=== PATIENT | male | born 1960 | race Caucasian/White ===

== ENCOUNTER 2024-12-24 11:15 | Inpatient (IN) | payer MEDICAID, OTHER ==
[~2024-12-24] VITALS: Ht 177.8 cm; Wt 92.8 kg
[~2024-12-24 11:15] MED LIST: ACET-3207 PO; ALBU2.5V39 NEB; AMLO-258 PO; CITA-144 PO; DSS100 PO; HEP5KI SQ; LISI-894 PO; LORA0.5T20 PO; MAGN-169 PO; PANT40TA54 PO; ZOLP-280 PO
[2024-12-24 11:39] LABS: BASOPHILS % (AUTO) 1.1 % (0.0-2.0); EOSINOPHILS % (AUTO) 1.1 % (1.0-6.0); HEMATOCRIT 47.2 % (41-53); HEMOGLOBIN 15.5 g/dL (13.5-17.5); LYMPHOCYTES # (AUTO) 1.2 K/uL (1.0-4.8); LYMPHOCYTES % (AUTO) 16.6 % (22.0-44.0); MEAN CORPUSCULAR HGB CONC 32.9 G/dL (31.0-37.0); MEAN CORPUSCULAR VOLUME 85 fL (80-100); MONOCYTES # (AUTO) 0.6 K/uL (0.1-1.0); MONOCYTES % (AUTO) 8.4 % (2.0-9.0); NEUTROPHILS # (AUTO) 5.3 K/uL (1.8-7.7); NEUTROPHILS % (AUTO) 72.8 % (40.0-70.0); PLATELET COUNT (AUTO) 245 K/uL (150-450); RED BLOOD CELL COUNT(AUTO) 5.55 MIL/uL (4.50-5.90); WHITE BLOOD COUNT (AUTO) 7.2 K/uL (4.5-11.0)
[2024-12-24] MEDS ORDERED: IOHEXOL 300 MG/ML 100 ML VIAL ONE (11:41)
[2024-12-24] MEDS ORDERED: SODIUM CHLORIDE 0.9% 100 ML ONE (11:41)
[2024-12-24] MEDS ORDERED: 0.9% SODIUM CHLORIDE 10 ML SYRINGE IVP ONE (11:41)
[2024-12-24 11:52] LABS: ANION GAP 9 mmol/L (8-16); CALCIUM, TOTAL 8.9 mg/dL (8.8-10.5); CARBON DIOXIDE 29 mmol/L (22-29); CHLORIDE 102 mmol/L (98-107); CREATININE 0.93 mg/dL (0.60-1.30); GLOMERULAR FILTR. RATE CALC > 60 mL/min (>60); GLUCOSE,RANDOM 109 mg/dL (70-110); HEMOGLOBIN A1C 6.1 % (3.8-5.6); POTASSIUM 3.7 mmol/L (3.5-5.1); SODIUM SERUM 140 mmol/L (136-145); UREA NITROGEN, BLOOD 14 mg/dL (7-18)
[2024-12-24 11:54] LABS: PROTHROMBIN TIME 10.5 SEC (9.4-11.6)
[2024-12-24 12:02] LABS: ALANINE AMINOTRANSFERASE 23 U/L (12-78); ALBUMIN 3.5 g/dL (3.4-5.0); ALKALINE PHOSPHATASE 117 U/L (46-116); ASPARTATE AMINOTRANSFERASE 17 U/L (15-37); BILIRUBIN,TOTAL 0.5 mg/dL (0.1-1.0); CHOL/HDL RATIO 3.2 (4.2-7.3); CHOLESTEROL 203 mg/dL (131-200); HDL CHOLESTEROL 64 mg/dL (40-60); LDL CHOL (CALC.) 127 mg/dL (0-130); TOTAL PROTEIN, SERUM 6.7 g/dL (6.4-8.2); TRIGLYCERIDES 62 mg/dL (15-150); TROPONIN I-HIGH SENSITIVITY 16 ng/L (<76)
[2024-12-24] MEDS ORDERED: AMLO-257 PO (12:13)
[2024-12-24] MEDS ORDERED: ASPI-1450 PO (12:13)
[2024-12-24 12:16] LABS: APPEARANCE,URINE CLEAR (CLEAR); BILIRUBIN,URINE NEGATIVE (NEGATIVE); COLOR,URINE LIGHT YELLOW (YELLOW); GLUCOSE, URINE (UA) NEGATIVE (NEGATIVE); KETONES,URINE NEGATIVE (NEGATIVE); LEUKOCYTE ESTERASE ,URINE NEGATIVE (NEGATIVE); NITRATE,URINE NEGATIVE (NEGATIVE); OCCULT BLOOD,URINE NEGATIVE (NEGATIVE); PROTEIN,URINE NEGATIVE (NEGATIVE); SPECIFIC GRAVITIY, URINE 1.028 (1.003-1.030); UROBILINOGEN,URINE <=1.0 mg/dL (<=1.0)
[2024-12-24] MEDS: lisinopriL 10 MG TABLET PO ONE (12:21)
[2024-12-24] MEDS: AmLODIPine BESYLATE 5 MG TABLET PO ONE (12:21)
[2024-12-24 12:22] LABS: ALCOHOL, URINE DRUG SCREEN NEGATIVE (NEGATIVE); AMPHET/METH SCREEN,URINE POSITIVE (NEGATIVE); BARBITURATE SCREEN, URINE NEGATIVE (NEGATIVE); BENZODIAZEPINES SCREEN,URINE NEGATIVE (NEGATIVE); CANNABINOID SCREEN,URINE NEGATIVE (NEGATIVE); COCAINE SCREEN,URINE NEGATIVE (NEGATIVE); METHADONE SCREEN, URINE NEGATIVE (NEGATIVE); OPIATE SCREEN,URINE NEGATIVE (NEGATIVE); PHENCYCLIDINE SCREEN,URINE NEGATIVE (NEGATIVE)
[2024-12-24 12:34] LABS: BACTERIA,URINE None Seen /HPF (None Seen); RBC,URINE None Seen /HPF (0-2); WBC,URINE None Seen /HPF (0-5)
[2024-12-24] MEDS: ASPIRIN 81 MG CHEWABLE TABLET PO ONE (13:27)
[2024-12-24] MEDS: LORazepam 1 MG TABLET PO ONE (13:27)
[2024-12-24 14:44] VITALS: BP 156/94; PULSE 64; RESP 18; TEMP 98.2; O2SAT 96
[2024-12-24] MEDS: HEPARIN SODIUM,PORCINE 5,000 UNITS/ML VIAL SQ SCH (16:00)
[2024-12-24 17:20] LABS: TROPONIN I-HIGH SENSITIVITY 16 ng/L (<76)
[2024-12-24 20:00] VITALS: BP 145/116; PULSE 82; RESP 19; TEMP 97.5; O2SAT 92
[2024-12-24] MEDS: ATORVASTATIN CALCIUM 40 MG TABLET PO SCH (20:20)
[2024-12-24] MEDS: DOCUSATE SODIUM 100 MG CAPSULE PO SCH (20:20)
[2024-12-24 23:34] VITALS: BP 147/90; PULSE 73; RESP 18; TEMP 97.5; O2SAT 95
[2024-12-24 23:48] LABS: TROPONIN I-HIGH SENSITIVITY 16 ng/L (<76)
[2024-12-25] VITALS: BP 147/90; PULSE 73; RESP 18; TEMP 97.5; O2SAT 95
[2024-12-25 04:02] VITALS: BP 159/94; PULSE 86; RESP 19; TEMP 97.7; O2SAT 96
[2024-12-25] MEDS: ACETAMINOPHEN 325 MG TABLET PO PRN (05:18)
[2024-12-25 08:37] VITALS: BP 150/95; PULSE 70; RESP 18; TEMP 97.7; O2SAT 94
[2024-12-25] MEDS: ASPIRIN 81 MG CHEWABLE TABLET PO SCH (09:00)
[2024-12-25] MEDS: CLOPIDOGREL BISULFATE 75 MG TABLET PO SCH (09:00)
[2024-12-25] MEDS: LORazepam 0.5 MG TABLET PO ONE (10:39)
[2024-12-25 13:25] VITALS: BP 163/95; PULSE 74; RESP 20; TEMP 97.9; O2SAT 97
[2024-12-25] MEDS: ACETAMINOPHEN 500 MG TABLET PO ONE (15:16)
[2024-12-25 16:00] VITALS: BP 166/111; PULSE 71; RESP 18; TEMP 97.9; O2SAT 97
[2024-12-25] MEDS: SERTRALINE HCL 50 MG TABLET PO SCH (16:52)
[2024-12-25] MEDS: lisinopriL 20 MG TABLET PO SCH (16:52)
[2024-12-25] MEDS: AmLODIPine BESYLATE 5 MG TABLET PO SCH (16:52)
[2024-12-25] MEDS: HydrALAZINE HCL 20 MG/ML VIAL IVP ONE (18:36)
[2024-12-25 20:00] VITALS: BP 170/137; PULSE 71; RESP 19; TEMP 98.8; O2SAT 97
[2024-12-25] MEDS: LORazepam 0.5 MG TABLET PO PRN (20:33)
[2024-12-25] MEDS: ISOSORBIDE MONONITRATE 30 MG ER TABLET PO SCH (22:36)
[2024-12-26] VITALS: BP 155/137; PULSE 64; RESP 19; TEMP 97.5; O2SAT 97
[2024-12-26] MEDS: ONDANSETRON HCL 4 MG/2 ML VIAL IVP PRN (02:46)
[2024-12-26 07:02] LABS: BASOPHILS % (AUTO) 0.3 % (0.0-2.0); EOSINOPHILS % (AUTO) 0.2 % (1.0-6.0); HEMATOCRIT 45.6 % (41-53); HEMOGLOBIN 15.3 g/dL (13.5-17.5); LYMPHOCYTES % (AUTO) 10.9 % (22.0-44.0); MEAN CORPUSCULAR HEMOGLOBIN 28.4 pg (26.0-34.0); MEAN CORPUSCULAR HGB CONC 33.7 G/dL (31.0-37.0); MEAN CORPUSCULAR VOLUME 85 fL (80-100); MONOCYTES # (AUTO) 0.4 K/uL (0.1-1.0); MONOCYTES % (AUTO) 4.2 % (2.0-9.0); NEUTROPHILS # (AUTO) 8.1 K/uL (1.8-7.7); NEUTROPHILS % (AUTO) 84.4 % (40.0-70.0); PLATELET COUNT (AUTO) 247 K/uL (150-450); RED CELL DISTRIBUTION WIDTH 14.4 % (11.5-14.5); WHITE BLOOD COUNT (AUTO) 9.6 K/uL (4.5-11.0)
[2024-12-26 07:11] LABS: ANION GAP 9 mmol/L (8-16); CALCIUM, TOTAL 8.6 mg/dL (8.8-10.5); CARBON DIOXIDE 27 mmol/L (22-29); CHLORIDE 103 mmol/L (98-107); CREATININE 0.85 mg/dL (0.60-1.30); GLOMERULAR FILTR. RATE CALC > 60 mL/min (>60); GLUCOSE,RANDOM 145 mg/dL (70-110); POTASSIUM 3.8 mmol/L (3.5-5.1); SODIUM SERUM 139 mmol/L (136-145); UREA NITROGEN, BLOOD 13 mg/dL (7-18)
[2024-12-26 08:41] VITALS: BP 150/101; PULSE 56; RESP 18; TEMP 97.5; O2SAT 98
[2024-12-26] MEDS ORDERED: AmLODIPine BESYLATE 5 MG TABLET PO SCH (09:00)
[2024-12-26] MEDS ORDERED: lisinopriL 20 MG TABLET PO SCH (09:00)
[2024-12-26 11:42] VITALS: BP 159/95; PULSE 63; RESP 19; TEMP 97.5; O2SAT 95
[2024-12-26 15:14] VITALS: BP 169/97; PULSE 58; RESP 19; TEMP 97.9; O2SAT 96
[2024-12-26] MEDS: HydrALAZINE HCL 10 MG TABLET PO ONE (15:28)
[2024-12-26] MEDS: AmLODIPine BESYLATE 5 MG TABLET PO SCH (20:39)
[2024-12-26 23:40] VITALS: BP 161/87; PULSE 53; RESP 19; TEMP 97.7; O2SAT 96
[2024-12-27 03:48] VITALS: PULSE 54; RESP 19; TEMP 97.9; O2SAT 98
[2024-12-27] MEDS: HydrALAZINE HCL 20 MG/ML VIAL IVP ONE (04:19)
[2024-12-27 06:30] VITALS: BP 160/83; PULSE 64; RESP 18; TEMP 97.9; O2SAT 97
[2024-12-27 08:00] VITALS: BP 176/101; PULSE 70; RESP 18; TEMP 97.7; O2SAT 97
[2024-12-27 11:37] VITALS: BP 164/89; PULSE 54; RESP 18; O2SAT 97
[2024-12-27] MEDS: METOCLOPRAMIDE HCL 5 MG TABLET PO PRN (12:31)
[2024-12-27] MEDS: lisinopriL 10 MG TABLET PO ONE (12:31)
[2024-12-27 16:28] VITALS: BP 161/93; PULSE 63; RESP 18; TEMP 97.9; O2SAT 98
[2024-12-27 21:25] VITALS: BP 161/101; PULSE 64; RESP 19; TEMP 97.9; O2SAT 97
[2024-12-28] VITALS (7 sets, daily range): BP systolic 149–184; BP diastolic 99–117; PULSE 65–78; RESP 18–20; TEMP 97.5–97.7; O2SAT 96–100
[2024-12-28] MEDS: lisinopriL 10 MG TABLET PO SCH (08:59)
[2024-12-28] MEDS: MORPHINE SULFATE 2 MG/ML SYRINGE IVP ONE (11:15)
[2024-12-28] MEDS: HydrALAZINE HCL 10 MG TABLET PO ONE (11:28)
[2024-12-28] MEDS: LACTULOSE 20 GM/30 ML SOLUTION UDCUP PO SCH (13:29)
[2024-12-28] MEDS ORDERED: ONDANSETRON 4 MG TABLET PO PRN (13:30)
[2024-12-28] MEDS: HydrALAZINE HCL 10 MG TABLET PO SCH (16:41)
[2024-12-29] VITALS (7 sets, daily range): BP systolic 121–166; BP diastolic 81–118; PULSE 66–79; RESP 18–20; TEMP 97.7–98.4; O2SAT 95–99
[2024-12-29] MEDS: NITROGLYCERIN 2% (1 GM=INCH) OINTMENT PACKET TP SCH (00:37)
[2024-12-29 07:13] LABS: BASOPHILS % (AUTO) 0.4 % (0.0-2.0); EOSINOPHILS % (AUTO) 0.6 % (1.0-6.0); HEMATOCRIT 46.8 % (41-53); LYMPHOCYTES % (AUTO) 9.4 % (22.0-44.0); MEAN CORPUSCULAR HEMOGLOBIN 28.4 pg (26.0-34.0); MEAN CORPUSCULAR HGB CONC 34.1 G/dL (31.0-37.0); MEAN CORPUSCULAR VOLUME 83 fL (80-100); MONOCYTES # (AUTO) 1.3 K/uL (0.1-1.0); MONOCYTES % (AUTO) 13.2 % (2.0-9.0); NEUTROPHILS # (AUTO) 7.8 K/uL (1.8-7.7); NEUTROPHILS % (AUTO) 76.4 % (40.0-70.0); PLATELET COUNT (AUTO) 265 K/uL (150-450); RED BLOOD CELL COUNT(AUTO) 5.63 MIL/uL (4.50-5.90); RED CELL DISTRIBUTION WIDTH 14.1 % (11.5-14.5); WHITE BLOOD COUNT (AUTO) 10.2 K/uL (4.5-11.0)
[2024-12-29 07:28] LABS: ANION GAP 10 mmol/L (8-16); CARBON DIOXIDE 27 mmol/L (22-29); CHLORIDE 91 mmol/L (98-107); CREATININE 0.71 mg/dL (0.60-1.30); GLOMERULAR FILTR. RATE CALC > 60 mL/min (>60); POTASSIUM 3.4 mmol/L (3.5-5.1); SODIUM SERUM 127 mmol/L (136-145)
[2024-12-29 07:42] LABS: CALCIUM, TOTAL 8.8 mg/dL (8.8-10.5); GLUCOSE,RANDOM 110 mg/dL (70-110); UREA NITROGEN, BLOOD 12 mg/dL (7-18)
[2024-12-29] MEDS: SODIUM CHLORIDE 0.9% 1,000 ML IV ONE (13:11)
[2024-12-30] VITALS (7 sets, daily range): BP systolic 100–124; BP diastolic 61–88; PULSE 70–78; RESP 18–20; TEMP 97.3–98.2; O2SAT 96–99
[2024-12-30 07:56] LABS: BASOPHILS % (AUTO) 0.8 % (0.0-2.0); EOSINOPHILS % (AUTO) 2.8 % (1.0-6.0); HEMATOCRIT 46.7 % (41-53); HEMOGLOBIN 15.9 g/dL (13.5-17.5); LYMPHOCYTES # (AUTO) 1.4 K/uL (1.0-4.8); LYMPHOCYTES % (AUTO) 15.8 % (22.0-44.0); MEAN CORPUSCULAR HEMOGLOBIN 28.4 pg (26.0-34.0); MEAN CORPUSCULAR VOLUME 84 fL (80-100); MONOCYTES # (AUTO) 1.4 K/uL (0.1-1.0); MONOCYTES % (AUTO) 15.9 % (2.0-9.0); NEUTROPHILS # (AUTO) 5.6 K/uL (1.8-7.7); NEUTROPHILS % (AUTO) 64.7 % (40.0-70.0); PLATELET COUNT (AUTO) 271 K/uL (150-450); RED BLOOD CELL COUNT(AUTO) 5.59 MIL/uL (4.50-5.90); RED CELL DISTRIBUTION WIDTH 14.4 % (11.5-14.5); WHITE BLOOD COUNT (AUTO) 8.6 K/uL (4.5-11.0)
[2024-12-30 08:12] LABS: ANION GAP 6 mmol/L (8-16); CALCIUM, TOTAL 8.3 mg/dL (8.8-10.5); CARBON DIOXIDE 27 mmol/L (22-29); CHLORIDE 94 mmol/L (98-107); CREATININE 0.86 mg/dL (0.60-1.30); GLOMERULAR FILTR. RATE CALC > 60 mL/min (>60); GLUCOSE,RANDOM 100 mg/dL (70-110); POTASSIUM 3.3 mmol/L (3.5-5.1); SODIUM SERUM 127 mmol/L (136-145); UREA NITROGEN, BLOOD 17 mg/dL (7-18)
[2024-12-30] MEDS ORDERED: POTASSIUM CHL 10 MEQ/WATER 50 ML IV PRN (14:45)
[2024-12-30] MEDS: SODIUM CHLORIDE 0.9% 1,000 ML IV ONE (16:00)
[2024-12-30] MEDS: POTASSIUM CHLORIDE 20 MEQ ER TABLET PO PRN (16:00)
[2024-12-30] MEDS: SODIUM CHLORIDE 1 GM TABLET PO SCH (20:12)
[2024-12-30] MEDS: MEGESTROL ACETATE 40 MG TABLET PO SCH (20:13)
[2024-12-31 05:03] VITALS: BP 106/77; PULSE 64; RESP 18; TEMP 98.1; O2SAT 95
[2024-12-31 07:20] VITALS: BP 102/67; PULSE 63; RESP 18; TEMP 98.1; O2SAT 98
[2024-12-31 07:39] LABS: BASOPHILS % (AUTO) 1.2 % (0.0-2.0); EOSINOPHILS % (AUTO) 5.3 % (1.0-6.0); HEMATOCRIT 46.3 % (41-53); HEMOGLOBIN 15.5 g/dL (13.5-17.5); LYMPHOCYTES # (AUTO) 1.6 K/uL (1.0-4.8); LYMPHOCYTES % (AUTO) 19.6 % (22.0-44.0); MEAN CORPUSCULAR HEMOGLOBIN 28.1 pg (26.0-34.0); MEAN CORPUSCULAR HGB CONC 33.4 G/dL (31.0-37.0); MEAN CORPUSCULAR VOLUME 84 fL (80-100); MONOCYTES # (AUTO) 1.5 K/uL (0.1-1.0); MONOCYTES % (AUTO) 18.5 % (2.0-9.0); NEUTROPHILS # (AUTO) 4.6 K/uL (1.8-7.7); NEUTROPHILS % (AUTO) 55.4 % (40.0-70.0); PLATELET COUNT (AUTO) 264 K/uL (150-450); RED BLOOD CELL COUNT(AUTO) 5.52 MIL/uL (4.50-5.90); RED CELL DISTRIBUTION WIDTH 14.2 % (11.5-14.5); WHITE BLOOD COUNT (AUTO) 8.3 K/uL (4.5-11.0)
[2024-12-31 07:59] LABS: ANION GAP 6 mmol/L (8-16); CALCIUM, TOTAL 8.2 mg/dL (8.8-10.5); CARBON DIOXIDE 28 mmol/L (22-29); CHLORIDE 101 mmol/L (98-107); CREATININE 0.81 mg/dL (0.60-1.30); GLOMERULAR FILTR. RATE CALC > 60 mL/min (>60); GLUCOSE,RANDOM 97 mg/dL (70-110); POTASSIUM 3.6 mmol/L (3.5-5.1); SODIUM SERUM 135 mmol/L (136-145); UREA NITROGEN, BLOOD 15 mg/dL (7-18)
[2024-12-31 14:58] VITALS: BP 129/82; PULSE 61; RESP 18; TEMP 98.6; O2SAT 96
[2024-12-31 19:44] VITALS: BP 132/72; PULSE 63; RESP 18; TEMP 98.9; O2SAT 95
[2024-12-31] MEDS: HydrALAZINE HCL 10 MG TABLET PO SCH (20:08)
[2025-01-01 05:06] VITALS: BP 134/87; PULSE 60; RESP 18; TEMP 97.5; O2SAT 95
[2025-01-01 07:25] VITALS: BP 120/86; PULSE 58; RESP 18; TEMP 98.2; O2SAT 94
[2025-01-01 11:59] VITALS: BP 141/83; PULSE 63; O2SAT 93
[2025-01-01 20:25] VITALS: BP 137/71; PULSE 62; RESP 20; TEMP 98.2; O2SAT 97
[2025-01-02 07:29] LABS: ANION GAP 9 mmol/L (8-16); CALCIUM, TOTAL 8.8 mg/dL (8.8-10.5); CARBON DIOXIDE 27 mmol/L (22-29); CHLORIDE 100 mmol/L (98-107); CREATININE 0.91 mg/dL (0.60-1.30); GLOMERULAR FILTR. RATE CALC > 60 mL/min (>60); GLUCOSE,RANDOM 114 mg/dL (70-110); SODIUM SERUM 136 mmol/L (136-145); UREA NITROGEN, BLOOD 10 mg/dL (7-18)
[2025-01-02 08:28] VITALS: BP 139/103; PULSE 62; RESP 19; TEMP 98.4; O2SAT 98
[2025-01-02] MEDS ORDERED: ATOR40TA28 PO (14:25)
[2025-01-02] MEDS ORDERED: CLOP75TA83 PO (14:27)
[2025-01-02] MEDS ORDERED: HYDR10TA31 PO (14:28)
[2025-01-02] MEDS ORDERED: ISOS30TA92 PO (14:29)
[2025-01-02] MEDS ORDERED: MEGE40TA33 PO (14:30)
[2025-01-02] MEDS ORDERED: SERT-158 PO (14:30)
[2025-01-02] MEDS ORDERED: LACT10SO85 PO (14:30)
[2025-01-02] MEDS ORDERED: SODI100067 PO (14:35)
[2025-01-02] MEDS ORDERED: ACET-2247 PO (14:37)
[2025-01-02] MEDS ORDERED: LORA0.5T20 PO (14:38)
[2025-01-02] MEDS ORDERED: METO5TAB95 PO (14:46)
[2025-01-02 15:26] LABS: COVID AG,FIA SOURCE NASAL SWAB
[2025-01-02 15:32] VITALS: BP 117/86; PULSE 75; RESP 18; TEMP 98.1; O2SAT 98
[2025-01-02 15:59] LABS: SARS-COV2 (COVID) ANTIGEN,FIA Negative (Negative)
== END 2025-01-02 18:08 | DRG 47 ==
LOC: EMS 11:16 → EDH 13:04 → 5S 14:30 → 6S 12-27 11:05 → 4E 12-27 17:55
PROVIDERS: ADMIT Internal Medicine; ATTEND Internal Medicine
DX: G45.9 Transient cerebral ischemic attack, unspecified (principal); E87.1 Hypo-osmolality and hyponatremia; R45.851 Suicidal ideations; I16.1 Hypertensive emergency; E78.5 Hyperlipidemia, unspecified; F15.10 Other stimulant abuse, uncomplicated; E87.6 Hypokalemia; F41.9 Anxiety disorder, unspecified; K59.00 Constipation, unspecified; N40.0 Benign prostatic hyperplasia without lower urinary tract symptoms; R10.84 Generalized abdominal pain; F33.2 Major depressive disorder, recurrent severe without psychotic features; I10 Essential (primary) hypertension; Z79.899 Other long term (current) drug therapy; I69.351 Hemiplegia and hemiparesis following cerebral infarction affecting right dominant side; Z79.02 Long term (current) use of antithrombotics/antiplatelets; Z79.82 Long term (current) use of aspirin; Z88.2 Allergy status to sulfonamides; Z91.51 Personal history of suicidal behavior
CPT/HCPCS: 70496; 70498; 70551; 71045; 74176; 80048; 80053; 80061; 80307; 81001; 82948; 83036; 83690; 83735; 84132; 84484; 85025; 85610; 85730; 86850; 86900; 86901; 92523; 92610; 93005; 93306; 97166; 97530; 99285; G0378; J0360; J1644; J2405; J7030; J7050; Q9967; 36415-L1; 36415-TC; 70450; 70450-TC